=== PATIENT | male | born 2000 | race Two or more races ===

== ENCOUNTER 2020-07-11 15:04 | Emergency (ER) | payer OTHER ==
[~2020-07-11] VITALS: Ht 160 cm; Wt 70.3 kg
[2020-07-11 15:06] VITALS: BP 131/89
[2020-07-11] MEDS ORDERED: LIDOCAINE 1% HCL (LOCAL ANESTH.) INJ 20ML MDV IJ ONE (16:15)
[2020-07-11] MEDS ORDERED: cefTRIAXone SOD 1,000 MG VL IM ONE (16:30)
[2020-07-11] MEDS ORDERED: IBUPROFEN 800 MG TAB PO ONE (16:30)
== END 2020-07-11 17:19 | disposition home or self-care (01) ==
LOC: ER 15:04
DX: L02.214 Cutaneous abscess of groin (principal)
CPT/HCPCS: 10060; 87077; 87186; 87205; 96372; 99283; J0696; J2001

== ENCOUNTER 2020-07-13 11:00 | Emergency (ER) | payer OTHER ==
[~2020-07-13] VITALS: Ht 160 cm; Wt 70.3 kg
[2020-07-13 11:02] VITALS: BP 137/85
== END 2020-07-13 12:19 | disposition home or self-care (01) ==
LOC: ER 11:00
DX: L02.219 Cutaneous abscess of trunk, unspecified (principal); Z48.01 Encounter for change or removal of surgical wound dressing

== ENCOUNTER 2020-07-15 14:35 | Emergency (ER) | payer OTHER ==
[~2020-07-15] VITALS: Ht 160 cm; Wt 70.3 kg
[2020-07-15 15:44] VITALS: BP 122/70
[2020-07-15] MEDS ORDERED: BACITRACIN TOP OINT 1 UD PKG TOP ONE (19:00)
== END 2020-07-15 19:34 | disposition home or self-care (01) ==
LOC: ER 14:35
DX: L02.214 Cutaneous abscess of groin (principal)